=== PATIENT | male | born 1960 | race Two or more races ===

== ENCOUNTER 2018-12-04 11:48 | Outpatient (CLI) | payer OTHER | END 2018-12-04 12:31 | disposition home or self-care (01) | LOC: LAB 11:48 | DX: J11.1 Influenza due to unidentified influenza virus with other respiratory manifestations (principal); J06.9 Acute upper respiratory infection, unspecified ==

== ENCOUNTER 2018-12-05 09:55 | Outpatient (CLI) | payer OTHER | END 2018-12-05 10:05 | disposition home or self-care (01) | LOC: RAD 09:55 | DX: M54.2 Cervicalgia (principal); M79.604 Pain in right leg ==

== ENCOUNTER 2018-12-10 11:47 | Outpatient (CLI) | payer OTHER | END 2018-12-10 14:18 | disposition home or self-care (01) | LOC: RAD 11:47 | DX: J18.0 Bronchopneumonia, unspecified organism (principal) ==

== ENCOUNTER 2018-12-15 08:49 | Outpatient (CLI) | payer OTHER | END 2018-12-15 09:04 | disposition home or self-care (01) | LOC: TOM 08:49 | DX: R10.9 Unspecified abdominal pain (principal); K57.80 Diverticulitis of intestine, part unspecified, with perforation and abscess without bleeding ==

== ENCOUNTER → 2021-09-12 09:08 | Outpatient (CLI) | payer OTHER | END | disposition home or self-care (01) | LOC: NUCLEAR 09:08 | PROVIDERS: ATTEND General Practice | DX: M79.661 Pain in right lower leg (principal); R60.0 Localized edema; I87.2 Venous insufficiency (chronic) (peripheral) ==